=== PATIENT | male | born 1980 | race Hispanic/Latino ===

== ENCOUNTER 2024-03-28 11:42 | Inpatient (IN) | payer SELFPAY ==
[2024-03-28] VITALS (7 sets, daily range): BP systolic 138–146; BP diastolic 92–101; PULSE 66–74; RESP 17–20; TEMP 97.6–97.8; O2SAT 97–98
[~2024-03-28] VITALS: Ht 172.7 cm; Wt 89.4 kg
--- NOTE | 2024-03-28 11:52 | NUR ---
PATIENT WAS ADMINISTERED X1 SL NITRO AND 324MG OF ASA BRIM IRONER HAND BY EMS. PATIENT HAS NO COMPLAINTS OF CP AT THIS TIME.
--- NOTE | 2024-03-28 12:13 | ERN ---
ED Note History of Present Illness Stated Complaint: SOB Chief Complaint: Other Problems Time Seen by MD: 11:48 Time Seen by Midlevel: 11:48 Dictation: 43-year-old male with h/o DM presents to the ED via EMS for evaluation chest pain. Patient reports he has been doing cocaine and drinking since last night and has had chest pain. EMS reports gave nitro and 325 aspirin with improvement in symptoms.Patient no longer having pain at this time. Patient reports he has a chronic daily drinking that drinks every day with last drink last night. Reports was feeling anxious and shaking. Past Medical History Past Medical History: Diabetes-Type II, Hypertension Surgical History: Other Surgical History Other: RIGHT ARM SX Social History: Drugs, ETOH RN Note Reviewed/Agreed w/PFSH: Yes Review of System Dictation CONSTITUTIONAL: Negative except for HPI HEAD/FACE: Negative except for HPI EENT: Negative except for HPI RESPIRATORY: Negative except for HPI GASTROINTESTINAL/ABDOMINAL: Negative except for HPI GENITOURINARY: Negative except for HPI MUSCULOSKELETAL: Negative except for HPI INTEGUMENTARY: Negative except for HPI NEUROLOGICAL/PSYCH: Negative except for HPI HEMATOLOGIC/LYMPHATIC: Negative except for HPI All Systems Negative, Except as noted above. 13 point review of systems assessed and all negative except for above. Review of Systems: was completed Initial Vital Sign VS Vital Signs Date Time Temp Pulse Resp B/P (MAP) Pulse Ox O2 Delivery O2 Flow Rate FiO2 03/28/24 11:45 98.4 82 18 161/76 99 03/28/24 11:49 Room Air* 0 21 Physical Exam Dictation PHYSICAL EXAM: GENERAL: alert,, awake oriented x 3 HEENT: EOMI, Sclera non icteric, moist mucosa NECK: Supple, no JVD, trachea midline LUNGS: Clear breath sounds bilaterally. No wheezes HEART: Regular rate and rhythm. Normal S1 and S2, without murmurs ABD: Abdomen soft, nontender. Bowel sounds present EXT: No clubbing or cyanosis, NEURO: Alert and oriented to person, follows commands Results (Laboratory/Radiology) Laboratory/Radiology Laboratory Tests Test 03/28/24 11:50 03/28/24 12:34 03/28/24 14:13 White Blood Count 8.4 K/uL (4.8-10.8) Red Blood Count 4.72 MIL/uL (4.50-6.20) Hemoglobin 14.7 g/dL (14.0-18.0) Hematocrit 42.7 % (42-54) Mean Corpuscular Volume 90.5 fL (79-99) Mean Corpuscular Hemoglobin 31.1 pg (27.0-33.0) Mean Corpuscular Hemoglobin Concent 34.4 g/dL (32.0-36.0) Red Cell Distribution Width 13.6 % (11.0-15.5) Platelet Count 260 K/uL (130-400) Mean Platelet Volume 11.0 fL (7.5-10.5) H Immature Granulocyte % (Auto) 0.1 % (0-1) Neutrophils (%) (Auto) 72.4 % (40.0-77.0) Lymphocytes (%) (Auto) 16.5 % (21.0-51.0) L Monocytes (%) (Auto) 8.7 % (3.0-13.0) Eosinophils (%) (Auto) 1.6 % (0.0-8.0) Basophils (%) (Auto) 0.7 % (0.0-5.0) Neutrophils # (Auto) 6.1 K/uL (1.8-7.7) Lymphocytes # (Auto) 1.4 K/uL (1.0-4.8) Monocytes # (Auto) 0.7 K/uL (0.1-1.0) Eosinophils # (Auto) 0.13 K/uL (0.00-0.70) Basophils # (Auto) 0.06 K/uL (0.00-0.20) Absolute Immature Granulocyte (auto 0.01 K/uL (0-1) Nucleated Red Blood Cells 0.0 % (0.0-0.19) Sodium Level 134 mmol/L (136-145) L Potassium Level 3.8 mmol/L (3.5-5.1) Chloride Level 97 mmol/L (101-111) L Carbon Dioxide Level 26 mmol/L (21-32) Blood Urea Nitrogen 7 mg/dL (7-18) Creatinine 1.0 mg/dL (0.5-1.3) Glomerular Filtration Rate Calc 96 mL/min (>90) Random Glucose 104 mg/dL (70-105) Total Calcium 8.9 mg/dL (8.5-10.1) Total Creatine Kinase 530 U/L (21-232) *H B-Type Natriuretic Peptide 6 pg/mL (0-100) Serum Alcohol 5 mg/dL (0-10) Troponin I < 0.05 ng/mL (0.00-0.05) Troponin I High Sensitivity 6 ng/L (4-75) Labs Reviewed?: Yes ED Course ED Course Orders Procedure Category Date Status Time Vital Signs Per CPOE 03/28/24 Transmitted Routine 11:53 B-Type Natriuretic LAB 03/28/24 Complete Peptide 11:53 Chest 1vw RAD 03/28/24 Resulted 11:53 12 Lead Ekg Tracing- EKG 03/28/24 Logged Technical 11:53 Oxygen By Nc/Pulse Ox CPOE 03/28/24 Transmitted 11:53 Maintain Iv CPOE 03/28/24 Transmitted 11:53 Iv Insertion CPOE 03/28/24 Transmitted 11:53 Cardiac Monitoring CPOE 03/28/24 Transmitted 11:53 Pulse Oximetry With CPOE 03/28/24 Transmitted Vs And Prn 11:53 Cbc With Differential LAB 03/28/24 Complete 11:53 Activity: Br W/Brp CPOE 03/28/24 Transmitted With Assist 11:53 Creatine Kinase, Total LAB 03/28/24 Complete 11:53 Urinalysis Profile LAB 03/28/24 In Process 11:53 Troponin Poc Order LAB 03/28/24 Complete Only 11:53 Bedside Troponin-I LAB.ER 03/28/24 In Process (Poc) 11:53 Basic Metabolic Panel LAB 03/28/24 Complete 11:53 Alcohol, Blood LAB 03/28/24 Complete 12:01 0.9%Nacl 1000ml (Ns PHA 03/28/24 Complete 1000ml) 13:00 Drug Screen Urine LAB 03/28/24 Logged 13:39 Troponin I High LAB 03/28/24 Complete Sensitivity 14:06 Initiate YUSEF 03/28/24 In Process Hyperglycemia Protoco 15:21 Insulin Regular, PHA 03/28/24 Logged Human 3ml (Humulin R 16:30 Initiate Hypoglycemia YUSEF 03/28/24 Transmitted Protocol 15:21 Dextrose 50%-Water PHA 03/28/24 Transmitted (D50w) 15:30 Glucagon 1mg Kit PHA 03/28/24 Logged (Glucagon 1mg Kit) 15:30 Initiate Hypokalemia CPOE 03/28/24 Transmitted Po Half 15:21 Potassium Chloride PHA 03/28/24 Logged 10meq/100ml ([place] 15:30 Potassium Chl 10% PHA 03/28/24 Logged Elixir 20meq (Kcl 10% 15:30 Potassium Chloride PHA 03/28/24 Logged 20meq Er (K-Dur/Klor- 15:30 Notify Physician If CPOE 03/28/24 Transmitted There Is 15:21 Notify Md On The Next CPOE 03/28/24 Transmitted 15:21 Notify Md On The CPOE 03/28/24 Transmitted Next(Cont.) 15:21 Magnesium 2gm Premix PHA 03/28/24 Logged 50ml (Magnesium 2gm 15:30 B-Type Natriuretic LAB 03/29/24 Verified Peptide 04:00 Ammonia LAB 03/29/24 Verified 04:00 Cbc With Differential LAB 03/29/24 Verified 04:00 Comprehensive LAB 03/29/24 Verified Metabolic Panel 04:00 Covid19 (Sars Antigen LAB 03/28/24 Logged Rapid) 15:21 Creatine Kinase, Total LAB 03/29/24 Verified 04:00 D-Dimer LAB 03/28/24 In Process 15:21 Hemoglobin A1c LAB 03/29/24 Verified 04:00 Hepatic Function Panel LAB 03/29/24 Verified 04:00 Influenza Type A & B, LAB 03/28/24 Logged Rapid 15:21 Lactic Acid LAB 03/29/24 Verified 04:00 Magnesium LAB 03/29/24 Verified 02:00 Procalcitonin LAB 03/29/24 Verified 04:00 Vital Signs(Adult CPOE 03/28/24 Transmitted Hospitalist) 15:22 Vital Signs(Adult CPOE 03/28/24 Transmitted Hospitalist) 15:23 Daily Weights CPOE 03/28/24 Transmitted 15:23 I&O Q Shift CPOE 03/28/24 Transmitted 15:23 Fever: Blood Cx X 2 CPOE 03/28/24 Transmitted 15:23 Diphenhydramine Hcl PHA 03/28/24 Logged (Benadryl Inj) 15:30 Acetaminophen 325 Tab PHA 03/28/24 Logged (Tylenol 325mg Tab 15:30 Acetaminophen 325 Tab PHA 03/28/24 Logged (Tylenol 325mg Tab 15:30 Zolpidem Tartrate 5 PHA 03/28/24 Logged Mg Tab (Ambien) 15:30 Mag/Alum/Simeth 30ml PHA 03/28/24 Logged (Maalox Plus 30ml) 15:30 Lactulose 20 Gm/30 Ml PHA 03/28/24 Logged Udcup (Constulose 15:30 Nitroglycerin 0.4mg PHA 03/28/24 Logged Sl Tab (Nitrostat) 15:30 Guaifenesin-Dm PHA 03/28/24 Logged 200/20mg 10ml 15:30 Ipratropium 0.5 PHA 03/28/24 Logged Mg/2.5 Ml Inh 18:00 Famotidine 20mg Vial PHA 03/28/24 Logged (Pepcid 20mg Vial) 15:30 Albuterol 0.083% PHA 03/28/24 Logged 2.5mg/3ml (Proventil 15:30 Nurse To Enter Home CPOE 03/28/24 Transmitted Medication 15:23 Admit Orders ADM 03/28/24 Transmitted 15:23 Telemetry Monitoring CPOE 03/28/24 Transmitted 15:23 Activity: Ad Shaina CPOE 03/28/24 Transmitted 15:23 Consistent Carb DIET 03/28/24 Transmitted Dinner Heparin 5,000 Unit PHA 03/28/24 Logged Vial (Heparin 5,000 U 21:00 Apply Scds CPOE 03/28/24 Transmitted 15:23 Acetaminophen 325 Tab PHA 03/28/24 Logged (Tylenol 325mg Tab 15:30 Ketorolac PHA 03/28/24 Logged Tromethamine 15mg/Ml 15:30 Morphine 2mg Syg PHA 03/28/24 Logged (Morphine 2mg Syg) 15:30 Ct Chest W/O Contrast CT 03/28/24 Logged 15:23 Echo 2-D Complete ECHO 03/28/24 Logged 15:23 Us Carotid Duplex US 03/28/24 Logged 15:23 *Nursing CPOE 03/28/24 Transmitted Communication: 15:23 Case Management CM 03/28/24 Transmitted Evaluation 15:23 Pt Eval Request PT 03/28/24 Transmitted 15:23 Famotidine 20mg Tab PHA 03/28/24 Logged (Pepcid 20mg Tab) 21:00 0.9%Nacl 1000ml (Ns PHA 03/28/24 Logged 1000ml) 15:30 Hydralazine 20mg Inj PHA 03/28/24 Logged (Apresoline 20mg In 15:30 Etoh Alcohol YUSEF 03/28/24 In Process Withdrawal Ords 15:23 Chlordiazepoxide Hcl PHA 03/28/24 Logged 25 Mg Cap (Librium 15:30 Chlordiazepoxide Hcl PHA 03/28/24 Logged 25 Mg Cap (Librium 15:30 Ondansetron 4mg Inj PHA 03/28/24 Logged (Zofran 4mg Inj) 15:30 Promethazine Hcl PHA 03/28/24 Logged (Phenergan) 15:30 Acetaminophen 500mg PHA 03/28/24 Logged Tab (Tylenol 500mg T 15:30 Thiamine Hcl (Vitamin PHA 03/28/24 Logged B-1)... 15:30 Pharmacy PHA 03/28/24 Logged Communication 15:30 Use [facility] CPOE 03/28/24 Transmitted Assmt. Tool 15:23 Assess The Need For CPOE 03/28/24 Transmitted Seizure & 15:23 Vs Per Unit Routine & CPOE 03/28/24 Transmitted With 15:23 Document Etoh CPOE 03/28/24 Transmitted Withdrawal Score 15:23 Current Medications Medications (Trade) Dose Ordered Sig/Jyoti Route PRN Reason Start Time Stop Time Status Last Admin Dose Admin Acetaminophen (TYLenol 325MG TAB) 650 mg Q4H PRN PO MILD PAIN (1-3) 03/28/24 15:30 04/27/24 15:29 UNV Acetaminophen (TYLenol 325MG TAB) 650 mg Q6H PRN PO MILD PAIN (1-3) 03/28/24 15:30 04/27/24 15:29 UNV Acetaminophen (TYLenol 325MG TAB) 650 mg Q6H PRN PO TEMPERATURE GREATER THAN 101.5 03/28/24 15:30 04/27/24 15:29 UNV Acetaminophen (TYLenol 500MG TAB) 500 mg Q6H PRN PO TEMP < 101.1 AND/OR HEADACHE 03/28/24 15:30 04/27/24 15:29 UNV Al Hydroxide/Mg Hydroxide (MAALox PLUS 30ML) 30 ml Q6H PRN PO INDIGESTION 03/28/24 15:30 04/27/24 15:29 UNV Albuterol Sulfate (Proventil 0.083% 2.5mg/3ml) 2.5 mg [id number] PRN IH RESPIRATORY SYMPTOMS 03/28/24 15:30 04/27/24 15:29 UNV Chlordiazepoxide HCl (LIBrium 25 MG CAP) 25 mg Q2H PRN PO ALCOHOL WITHDRAWAL PROTOCOL 03/28/24 15:30 04/04/24 15:29 UNV Chlordiazepoxide HCl (LIBrium 25 MG CAP) 50 mg Q1H PRN PO ALCOHOL WITHDRAWAL PROTOCOL 03/28/24 15:30 04/04/24 15:29 UNV Dextrose (D50w) 50 ml AD PRN IV HYPOGLYCEMIA PROTOCOL 03/28/24 15:30 04/27/24 15:29 UNV Diphenhydramine HCl (BENAdryl INJ) 25 mg Q6H PRN IV SEVERE ITCHING/RASH 03/28/24 15:30 04/27/24 15:29 UNV Famotidine (Pepcid 20mg Vial) 20 mg BID PRN IV NAUSEA/VOMITING 03/28/24 15:30 04/27/24 15:29 UNV Famotidine (Pepcid 20mg Tab) 20 mg BID PO 03/28/24 21:00 04/27/24 20:59 UNV Glucagon (Glucagon 1mg Kit) 1 mg AD PRN IM HYPOGLYCEMIA PROTOCOL 03/28/24 15:30 04/27/24 15:29 UNV Guaifenesin/ Dextromethorphan (RobiTUSSin DM 200/20MG 10ML) 10 ml Q4H PRN PO COUGH 03/28/24 15:30 04/27/24 15:29 UNV Heparin Sodium (Porcine) (HEParin 5,000 UNIT VIAL) 5,000 unit BID SQ 03/28/24 21:00 04/27/24 20:59 UNV Hydralazine HCl (APRESOLine 20MG INJ) 10 mg Q6H PRN IV For:SBP above 160;DBP above 90 03/28/24 15:30 04/27/24 15:29 UNV Insulin Human Regular (humuLIN R 100 UNIT/ML 3ML) INSULIN SLIDING SCAL... ACHS SQ 03/28/24 16:30 04/27/24 16:29 UNV Ipratropium [place] (AtrovENT UD) 0.5 mg [id number] IH 03/28/24 18:00 04/27/24 17:59 UNV Ketorolac Tromethamine (toRADol) 15 mg Q8H PRN IV MODERATE PAIN (4-6) 03/28/24 15:30 04/02/24 15:29 UNV Lactulose (Constulose 20gm/ 30ml Udcup) 20 gm BID PRN PO CONSTIPATION 03/28/24 15:30 04/27/24 15:29 UNV Magnesium Sulfate 50 ml @ 0 mls/hr PROTOCOL PRN IV other 03/28/24 15:30 04/27/24 15:29 UNV Morphine Sulfate (morPHINE 2MG SYG) 1 mg Q4H PRN IVP SEVERE PAIN (7-10) 03/28/24 15:30 04/04/24 15:29 UNV Nitroglycerin (Nitrostat) 0.4 mg PROTOCOL PRN SL CHEST PAIN 03/28/24 15:30 04/27/24 15:29 UNV Ondansetron HCl (zoFRAN 4MG INJ) 4 mg Q4H PRN IV NAUSEA 03/28/24 15:30 04/27/24 15:29 UNV Pharmacy Profile Note (Pharmacy Communication) 1 each PROTOCOL PRN MISC ETOH Withdrawal Score changes 03/28/24 15:30 04/04/24 15:29 UNV Potassium Chloride 100 ml @ 100 mls/hr AD PRN IV POTASSIUM PROTOCOL 03/28/24 15:30 04/27/24 15:29 UNV Potassium Chloride (K-Dur/Klor-Con 20meq) 10 meq AD PRN PO POTASSIUM PROTOCOL 03/28/24 15:30 04/27/24 15:29 UNV Potassium Chloride (KCl 10% Elixir 20meq/15ml) 10 meq AD PRN PO POTASSIUM PROTOCOL 03/28/24 15:30 04/27/24 15:29 UNV Promethazine HCl (Phenergan) 25 mg Q6H PRN PO NAUSEA 03/28/24 15:30 04/27/24 15:29 UNV Sodium Chloride 1,000 ml @ 0 mls/hr ONCE ONCE IV 03/28/24 13:00 03/28/24 13:01 DC 03/28/24 14:43 Sodium Chloride 1,000 ml @ 100 mls/hr Q10H IV 03/28/24 15:30 04/27/24 15:29 UNV Thiamine HCl 100 mg/Folic Acid 1 mg/Multivitamins/ Minerals 10 ml/ Sodium Chloride 1,011.2 ml @ 100 mls/ hr Q24H IV 03/28/24 15:30 03/31/24 01:37 UNV Zolpidem Tartrate (AmbIEN) 5 mg HS PRN PO INSOMNIA 03/28/24 15:30 04/27/24 15:29 UNV Vital Signs Date Time Temp Pulse Resp B/P (MAP) Pulse Ox O2 Delivery O2 Flow Rate FiO2 03/28/24 15:06 98.4 105 20 152/90 96 Room Air* 0 21 03/28/24 13:58 98.2 101 20 158/74 98 Room Air* 0 21 03/28/24 11:49 98.4 108 18 161/89 95 Room Air* 0 21 03/28/24 11:45 98.4 82 18 161/76 99 HEART Score Response (Comments) Value History: Low suspicion (0) 0 EKG: Normal 0 Age: < 45yrs (0) 0 Risk Factors: 1-2 risk factors (+1) 1 Initial Troponin: Normal limit (0) 0 HEART Score Risk: Low Risk for MACE (1-3) Total 1 Medical Decision Making MDM MDM: Differential diagnosis: AMI, unstable angina, alcohol intoxication, alcohol withdrawal, drug abuse Rationale: Tests considered and ordered secondary to shared decision making include: Previous outside records reviewed: Old ER visits. Risk of complication and/or morbidity or mortality of patient management: None Medications-Per medication reconciliation Need for hospitalization: Patient does meet criteria for hospitalization. Need for emergency major/minor surgery: No There are no social concerns with this patient. Prescription drug management Prescriptions will include symptomatic care Patient's prior external medical records from other ER visits were reviewed by me as indicated. Prior testing and results from previous visits were reviewed. Prior tests were taken into account with medical decision making and resource utilization, independent historian/historians were used to obtain complete medical history. I independently interpreted the test that were performed, results were reviewed by me and considered findings on radiology if ordered. Medical management and examination interpretation discussions were had by me with other qualified healthcare professionals as indicated for the patient's care. 43-year-old male with h/o DM presents to the ED via EMS for evaluation chest pain. Patient reports he has been doing cocaine and drinking since last night and has had chest pain. EMS reports gave nitro and 325 aspirin with improvement in symptoms.Patient no longer having pain at this time. Patient reports he has a chronic daily drinking that drinks every day with last drink last night. Reports was feeling anxious and shaking. On physical examination patient does appear to be anxious, or any alcohol withdrawals. No seizures, hallucinations. Patient was stable, no pain. Discussed with the plan with the hospitalist who agrees for admission. 2 negative troponin. Elevated CK, 530. Patient was given a bolus of NS. BNP within normal limits. Serum alcohol five. Ordered UTI has been unable to give urine sample at this time. She was x-ray shows fin dings consistent with a pulmonary venous congestion. Patient was in stable condition at this time to be a admitted. Heart score of one. DX & DISP Disposition: Inpatient Decision to Admit Date: Mar 28, 2024 Decision to Admit Time: 15:06 Departure Impression: Primary Impression: Alcohol withdrawal Additional Impressions: Drug use, Pulmonary venous congestion, Elevated CK Condition: Stable I have reviewed the case, and I agree with, Diagnosis and Plan CATHERINE CHAO Mar 28, 2024 12:13
[2024-03-28 12:19] LABS: BASOPHILS # (AUTO) 0.06 K/uL (0.00-0.20); BASOPHILS % (AUTO) 0.7 % (0.0-5.0); EOSINOPHILS # (AUTO) 0.13 K/uL (0.00-0.70); EOSINOPHILS % (AUTO) 1.6 % (0.0-8.0); HEMATOCRIT 42.7 % (42-54); IMMATURE GRANULOCYTE ABSOLUTE 0.01 K/uL (0-1); LYMPHOCYTES # (AUTO) 1.4 K/uL (1.0-4.8); LYMPHOCYTES % (AUTO) 16.5 % (21.0-51.0); MEAN CORPUSCULAR HEMOGLOBIN 31.1 pg (27.0-33.0); MEAN CORPUSCULAR HGB CONC 34.4 g/dL (32.0-36.0); MEAN CORPUSCULAR VOLUME 90.5 fL (79-99); MONOCYTES # (AUTO) 0.7 K/uL (0.1-1.0); MONOCYTES % (AUTO) 8.7 % (3.0-13.0); NEUTROPHILS # (AUTO) 6.1 K/uL (1.8-7.7); NEUTROPHILS % (AUTO) 72.4 % (40.0-77.0); PLATELET COUNT (AUTO) 260 K/uL (130-400); RED BLOOD CELL COUNT(AUTO) 4.72 MIL/uL (4.50-6.20); RED CELL DISTRIBUTION WIDTH 13.6 % (11.0-15.5); WHITE BLOOD COUNT (AUTO) 8.4 K/uL (4.8-10.8)
[2024-03-28 12:34] LABS: POTASSIUM 3.8 mmol/L (3.5-5.1)
[2024-03-28 12:35] LABS: B-TYPE NATRIURETIC PEPTIDE 6 pg/mL (0-100)
--- NOTE | 2024-03-28 12:56 | NUR ---
[id number] ERMD MADE AWARE
--- NOTE | 2024-03-28 13:24 | HMCIMG ---
Exam Type: CHEST 1VW Clinical Information: CHEST PAIN Comparison: None Findings: There is cardiomegaly. There is prominence of the vascular markings consistent with pulmonary venous congestion. IMPRESSION: Findings consistent with pulmonary venous congestion.
[2024-03-28] MEDS: 0.9%NACL 1000ML 1,000 ML IV ONE (14:43)
[2024-03-28] MEDS ORDERED: GLUCAGON 1MG KIT 1 MG ML IM PRN (15:30)
[2024-03-28] MEDS ORDERED: LACTULOSE 20 GM/30 ML UDCUP PO PRN (15:30)
[2024-03-28] MEDS ORDERED: PoTASSium chloRIDE 10MEQ/100ML 100 ML IV PRN (15:30)
[2024-03-28] MEDS ORDERED: morPHINE 2 MG SYG IVP PRN (15:30)
[2024-03-28] MEDS ORDERED: acetaMINOPHEN 325 MG TAB PO PRN ×2 (15:30)
[2024-03-28] MEDS ORDERED: MAG/ALUM/SIMETH 30 ML UDCUP PO PRN (15:30)
[2024-03-28] MEDS ORDERED: ondanSETRON 4MG INJ IV PRN (15:30)
[2024-03-28] MEDS ORDERED: DEXTROSE 50%-WATER 50 ML DISP.SYRIN IV PRN (15:30)
[2024-03-28] MEDS ORDERED: ZOLPidem TARTrate 5 MG TAB PO PRN (15:30)
[2024-03-28] MEDS ORDERED: PHARMACY COMMUNICATION MISC PRN (15:30)
[2024-03-28] MEDS ORDERED: DiphenhydrAMINE HCL 50 MG/ML VIAL IV PRN (15:30)
[2024-03-28] MEDS ORDERED: acetaMINOPHEN 500 MG TABLET PO PRN (15:30)
[2024-03-28] MEDS ORDERED: PROMETHAZINE HCL 25 MG TABLET PO PRN (15:30)
[2024-03-28] MEDS ORDERED: PoTASSium chloRIDE 10MEQ SR 10 MEQ/TAB TAB.SR.24H PO PRN (15:30)
[2024-03-28] MEDS ORDERED: NITROGLYCERIN 0.4 MG SL TAB SL PRN (15:30)
[2024-03-28] MEDS ORDERED: PoTASSium chl 10% ELIXIR 20MEQ 20 MEQ/15 ML UDCUP PO PRN (15:30)
[2024-03-28] MEDS ORDERED: FAMOTIDINE 20MG VIAL IV PRN (15:30)
[2024-03-28] MEDS ORDERED: hydrALAZine 20MG/ML VIAL IV PRN (15:30)
[2024-03-28] MEDS ORDERED: ALBUTEROL 0.083% 2.5 MG/3 ML INH IH PRN (15:30)
[2024-03-28] MEDS ORDERED: guaiFENesin-DM 200/20MG 10ML PO PRN (15:30)
--- NOTE | 2024-03-28 15:31 | HP ---
[facility] PH[facility] Date of Service: Mar 28, 2024 Time of Service: 15:29 PCP:self reffering Admitting: Dr Solomon, Allergies: No Allergy Information Available, No Known Drug Allergies HISTORY OF PRESENT ILLNESS: [Pt is 43-year-old male with medical hx of DM, htn, alcohol and drug abuse who presents to the ED via EMS for evaluation chest pain. Patient reports he has been doing cocaine and drinking since last night and has had chest pain. EMS reports gave nitro and 325 aspirin with improvement in symptoms.Patient no longer having pain at this time. Most recent VS R 105, HR 152/90, pt on RA satting 96%. WbC 8.4 h and h WNL, plattletts 260 Na 134, K3.8 co2 26, cr 1 bun 7 GFR 96 CK 530 troponin negative. CXRAY pulmonary venous congestion We will consult cardiology for furter eval. Pt agrees with plan] REVIEW OF SYSTEMS CONSTITUTIONAL: Denies fevers, chills, or night sweats. No unintentional weight loss reported. NEUROLOGICAL: Denies headache, amaurosis fugax, motor weakness, sensory deficit, vertigo/spinning sensation, gait abnormalities, or tremors. ENT: No hearing loss, otalgia, otorrhea, rhinitis, rhinorrhea, hoarseness, or sore throat. CARDIOVASCULAR: Denies any , orthopnea, paroxysmal nocturnal dyspnea, palpitations, life-threatening arrhythmias, claudication.Pt complaines of SOB, CP PULMONARY: Denies any shortness of breath, cough, phlegm/sputum, hemoptysis, pleuritic chest pain. SLEEP: Denies morning headaches, daytime somnolence or napping. Denies difficulty falling asleep, staying asleep, waking from sleep. Denies knowledge of snoring. GASTROINTESTINAL: Denies any type of dysphagia to either liquids or solids. Denies nausea, vomiting, pyrosis, early satiety, abdominal pain, diarrhea, constipation, or changes in stool consistency or caliber. Denies coffee-ground emesis, hematemesis, hematochezia, or melanotic stools. GENITOURINARY: Denies frequency, urgency, nocturia, hematuria or incontinence (Storage/Irritative symptoms.) Low urinary stream, straining to void, urinary intermittency or hesitancy, splitting of the voiding stream, terminal dribbling. ENDOCRINOLOGIC: Denies polyuria, polydipsia, polyphagia or heat/cold intolerances. HEMATOLOGIC: Denies thrombophilia/previous clots, or coagulopathy/bleeding disorders. ONCOLOGIC: Denies personal history of malignancy. DERMATOLOGIC: Denies rashes or pruritus. PSYCHIATRIC: Denies any suicidal or homicidal ideation. Denies hallucinations. PAST MEDICAL HISTORY: [ htn, dm2, tachy, alcohol and cocain abuse,] PAST SURGICAL HISTORY: [ right arm sx] PAST SOCIAL HISTORY: [ cocain and alcohol abuse daily. ] FAMILY HISTORY: [ lives at home with family ] PHYSICAL EXAM GENERAL APPEARANCE: The patient is awake, alert, and oriented, in no acute cardiopulmonary distress. NEUROLOGICAL: Cranial nerves II-XII grossly intact. Motor is 5/5 in bilateral upper and lower extremities proximal to distal. No sensory deficits. HEENT: Face is symmetric. Pupils are equal and reactive. Extraocular movements are intact. NECK: Supple. No JVD. No thyromegaly. No submental, submandibular, pre- /postauricular, occipital or supraclavicular lymphadenopathy. CHEST: Normal chest expansion. No Telemetry. LUNGS: Absence of any rales, rhonchi or any wheezing. CARDIOVASCULAR: Regular. S1 and S2 normal. No appreciable rubs, murmurs or gallops. ABDOMEN: Soft, nontender, and nondistended. There is no rebound, voluntary guarding, or rigidity. : Deferred. No Ron. EXTREMITIES: Non-edematous and not cyanotic. No clubbing. Good capillary refill. SKIN: No skin breakdown. Vital Sign (Last 24 Hours) 03/28/24 15:06 Temp 98.4 Pulse 105 Resp 20 B/P (MAP) 152/90 Pulse Ox 96 O2 Delivery Room Air* O2 Flow Rate 0 FiO2 21 LABS: Laboratory: Test 03/28/24 14:13 03/28/24 12:34 03/28/24 11:50 Range/Units Troponin I High Sensitivity 6 4-75 ng/L Troponin I < 0.05 0.00-0.05 ng/mL White Blood Count 8.4 4.8-10.8 K/uL Red Blood Count 4.72 4.50-6.20 MIL/uL Hemoglobin 14.7 14.0-18.0 g/dL Hematocrit 42.7 42-54 % Mean Corpuscular Volume 90.5 79-99 fL Mean Corpuscular Hemoglobin 31.1 27.0-33.0 pg Mean Corpuscular Hemoglobin Concent 34.4 32.0-36.0 g/dL Red Cell Distribution Width 13.6 11.0-15.5 % Platelet Count 260 130-400 K/uL Mean Platelet Volume 11.0 H 7.5-10.5 fL Immature Granulocyte % (Auto) 0.1 0-1 % Neutrophils (%) (Auto) 72.4 40.0-77.0 % Lymphocytes (%) (Auto) 16.5 L 21.0-51.0 % Monocytes (%) (Auto) 8.7 3.0-13.0 % Eosinophils (%) (Auto) 1.6 0.0-8.0 % Basophils (%) (Auto) 0.7 0.0-5.0 % Neutrophils # (Auto) 6.1 1.8-7.7 K/uL Lymphocytes # (Auto) 1.4 1.0-4.8 K/uL Monocytes # (Auto) 0.7 0.1-1.0 K/uL Eosinophils # (Auto) 0.13 0.00-0.70 K/uL Basophils # (Auto) 0.06 0.00-0.20 K/uL Absolute Immature Granulocyte (auto 0.01 0-1 K/uL Nucleated Red Blood Cells 0.0 0.0-0.19 % Sodium Level 134 L 136-145 mmol/L Potassium Level 3.8 3.5-5.1 mmol/L Chloride Level 97 L 101-111 mmol/L Carbon Dioxide Level 26 21-32 mmol/L Blood Urea Nitrogen 7 7-18 mg/dL Creatinine 1.0 0.5-1.3 mg/dL Glomerular Filtration Rate Calc 96 >90 mL/min Random Glucose 104 70-105 mg/dL Total Calcium 8.9 8.5-10.1 mg/dL Total Creatine Kinase 530 *H 21-232 U/L B-Type Natriuretic Peptide 6 0-100 pg/mL Serum Alcohol 5 0-10 mg/dL Current Medications Medications (Trade) Dose Ordered Sig/Jyoti Route PRN Reason Start Time Stop Time Status Last Admin Dose Admin Dextrose (D50w) 50 ml AD PRN IV HYPOGLYCEMIA PROTOCOL 03/28/24 15:30 04/27/24 15:29 UNV Glucagon (Glucagon 1mg Kit) 1 mg AD PRN IM HYPOGLYCEMIA PROTOCOL 03/28/24 15:30 04/27/24 15:29 UNV Insulin Human Regular (humuLIN R 100 UNIT/ML 3ML) INSULIN SLIDING SCAL... ACHS SQ 03/28/24 16:30 04/27/24 16:29 UNV Magnesium Sulfate 50 ml @ 0 mls/hr PROTOCOL PRN IV other 03/28/24 15:30 04/27/24 15:29 UNV Potassium Chloride 100 ml @ 100 mls/hr AD PRN IV POTASSIUM PROTOCOL 03/28/24 15:30 04/27/24 15:29 UNV Potassium Chloride (K-Dur/Klor-Con 20meq) 10 meq AD PRN PO POTASSIUM PROTOCOL 03/28/24 15:30 04/27/24 15:29 UNV Potassium Chloride (KCl 10% Elixir 20meq/15ml) 10 meq AD PRN PO POTASSIUM PROTOCOL 03/28/24 15:30 04/27/24 15:29 UNV DIAGNOSTICS / RADIOLOGY: [ ] ASSESSMENT: [ Acute hypoxic respiratory failure POA chest pain of unknown origin POA acute alcohol withdrawal POA acute cocain drug withdrawal POA rhabdomylosis POA [place] dehydration POA pulmonary vasc congestion per chest xray POA uncontrolled hypertension POA tachycardia POA uncontrolled dm 2 with hyperglycemia POA hx r arm sx ] PLAN: [ Admit to:med sx with tele Consults:cardiology Antibiotics: none Tests:2d echo, ct chest, us carotid NEURO: Minimize central acting medications as possible. Fall Precautions. Well lighted room through the day and minimize interruptions through the night to prevent acute delirium. PULMONARY: CXRAY pulmonary venous congestion Supplemental 02 as needed BiPAP as necessary, for respiratory distress Titrate Fio2 to keep Spo2 > or = 90% DuoNebs and CPT as needed IS hourly while awake for pulmonary hygiene Out of bed to chair as tolerated VAP Bundle Maintain aspiration precautions at all times CARDIOVASCULAR: Follow hemodynamics. Vital signs per facility protocol GI & NUTRITION: Continue nutritional support Aspirations precautions Prokinetic agents and laxatives as needed KIDNEYS & ELECTROLYTES: Strict monitoring of intake and output Daily weights Avoid nephrotoxic agents Monitor electrolytes and replace as needed Goal urine output of 30mL/hr or 0.5mL/kg/hr Medications to be dosed according to renal function. Avoid contrast if possible ENDOCRINE: Maintain blood glucose between 100-180 at all times. Insulin sliding scale for blood glucose management Hypoglycemia and hyperglycemia protocol in place INFECTIOUS DISEASE: Trend temperature, WBC and procalcitonin level Follow cultures, deescalate antibiotics as soon as possible. Panculture if new onset fever HEMATOLOGY & COAGULATION: Monitor H&H. Keep Hgb > 7 Transfuse 1 unit of PRBC for Hgb < 7 Transfuse 1 pack of platelets of platelets < 20, 000 Watch for any signs and symptoms of bleeding SKIN: Pressure ulcer prevention per facility protocol Specialty mattress as needed Treatment plan discussed with patient and family at the bedside Medications to be reconciled once obtained by patient and/or family and available to be reconciled in computer p.r.n. medication for pain nausea and vomiting Questions were answered We will continue to monitor the patient closely Cancer Registry Manager for disposition Rehab: PT/OT GI: PPI DVT: SCD's Code Status: Full Resuscitation Disposition: TBD Prognosis: Guarded ] ADVANCED CARE PLANNING 1. Which of the following were discussed? Hospice Care - Yes / No Therapeutic options - Yes / No Advance Directives - Yes / No Other discussions - 2. Discussed with who? pt 3. Voluntary nature of this service was explained to the patient? Yes / No 4. Amount of time spent - __more than 35 min 5. Reviewed by Physician? (if this service was performed by NPP) Yes / No ' ATTESTATION BY PHYSICIAN I have seen and examined the patient. I reviewed the documentation, medical decision making, and treatment plan as noted by the mid-level provider above. I agree with the findings and plan of care. Jacque Solomon MD, KATARZYNA B TARIFF CLERK Mar 28, 2024 15:31
--- NOTE | 2024-03-28 15:45 | NUR ---
CT EXAM DELAY: ULTRASOUND WITH PATIENT.
[2024-03-28 15:53] LABS: APPEARANCE,URINE CLEAR (CLEAR); BILIRUBIN,URINE NEGATIVE (NEGATIVE); COLOR,URINE COLORLESS (YELLOW); GLUCOSE, URINE (UA) NEGATIVE (NEGATIVE); KETONES,URINE 5 mg/dL (NEGATIVE); LEUKOCYTE ESTERASE ,URINE NEGATIVE Leu/uL (NEGATIVE); NITRATE,URINE NEGATIVE (NEGATIVE); OCCULT BLOOD,URINE NEGATIVE (NEGATIVE); PROTEIN,URINE NEGATIVE (NEGATIVE); UROBILINOGEN,URINE 0.2 mg/dL (0.2-1.0)
[2024-03-28 15:59] LABS: ADD UA MICROSCOPIC NO
[2024-03-28] MEDS: INSULIN humuLIN R 100 UNIT/ML 3ML SQ SCH (16:08)
[2024-03-28] MEDS: 0.9%NACL 1000ML 1,000 ML IV SCH (16:26)
[2024-03-28] MEDS: chlordiazePOXIDE HCL 25 MG CAP PO PRN ×2 (16:29→20:27)
[2024-03-28] MEDS: THIAMINE HCL 100 MG, FOLic ACID 5 MG/ML VIAL 1 MG, M.V.I. IV [ADULT] 10 ML in 0.9%NACL ... IV SCH (16:29)
--- NOTE | 2024-03-28 16:38 | HMCIMG ---
Carotid Duplex and color-flow Doppler bilateral Clinical Information: syncopy Comparison: None Findings: Mild left bifurcation plaque is seen. No hemodynamically significant stenosis noted. Left Internal Carotid Artery Peak Systolic Velocity (PSV), Left Internal Carotid to Common Carotid Artery peak systolic velocity ratio, Right Internal Carotid Artery Peak Systolic Velocity (PSV) and Right Internal Carotid to Common Carotid Artery peak systolic velocity ratio, are all within normal limits. External carotid artery velocities normal bilaterally. Bilateral vertebral arteries show normal velocities and waveforms with antegrade flow. Impression: No hemodynamically significant stenosis noted. NASCET CRITERIA. The degree of internal carotid artery stenosis is based on NASCET criteria. Normal is no stenosis. Mild is less than 50% stenosis. Moderate is 50-69% stenosis. Severe is 70% to 99% stenosis. Total occlusion is no detectable patent lumen.
--- NOTE | 2024-03-28 17:26 | EKG ---
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
[2024-03-28 17:56] LABS: AMPHET/METH SCREEN,URINE NEGATIVE (NEGATIVE); BARBITURATE SCREEN, URINE NEGATIVE (NEGATIVE); BENZODIAZEPINES SCREEN,URINE NEGATIVE (NEGATIVE); CANNABINOID SCREEN,URINE NEGATIVE (NEGATIVE); COCAINE SCREEN,URINE POSITIVE (NEGATIVE); OPIATE SCREEN,URINE NEGATIVE (NEGATIVE); PHENCYCLIDINE SCREEN,URINE NEGATIVE (NEGATIVE)
[2024-03-28] MEDS: IpraTROPium 0.5 MG/2.5 ML INH IH SCH (18:09)
--- NOTE | 2024-03-28 19:09 | NUR ---
TOOK OVER PATIENT AT THIS TIME
--- NOTE | 2024-03-28 20:15 | HMCIMG ---
CT CHEST W/O CONTRAST CLINICAL HISTORY: pna congestion sob COMPARISON: None TECHNIQUE: Multiple sequential axial images of the chest were obtained from the thoracic inlet through upper abdomen. CT was performed with one or more of the following dose reduction techniques: automated exposure control, adjustment of the mA and/or kV according to patient size, or use of iterative reconstruction technique FINDINGS: There is mild bibasilar atelectasis. The mediastinum is free of pathologic sized lymph nodes. There is no calcified coronary artery disease. Note is made of a large fatty liver. The bony structures are within normal limits. IMPRESSION: There are no identified infiltrates or acute findings. Fatty liver
[2024-03-28 20:27] LABS: COVID19 (SARS ANTIGEN RAPID) PRESUMPTIVE NEGATIVE (NEGATIVE); INFLUENZA TYPE A Negative For Type A (NEGATIVE); INFLUENZA TYPE B Negative For Type B (NEGATIVE)
[2024-03-28] MEDS: FAMOTIDINE 20MG TAB PO SCH (20:27)
[2024-03-28] MEDS: HEParin 5,000 UNIT VIAL SQ SCH (20:27)
[2024-03-29] VITALS (12 sets, daily range): BP systolic 131–157; BP diastolic 86–99; PULSE 65–83; RESP 17–19; TEMP 97.2–98.3; O2SAT 94–98
--- NOTE | 2024-03-29 02:35 | CONS ---
CHIEF COMPLAINT: Reproducible chest pain in the setting of cocaine intoxication and alcohol withdrawal. OUTPATIENT INDIAN TRADER: None. PRIMARY CARE PHYSICIAN: None. SOURCE: 1. The patient who is generally reliable. 2. The medical record. HISTORY OF PRESENT ILLNESS: The patient is a 43-year-old alcoholic and cocaine abuser, who had been bingeing on both last night. He thinks he might have fallen and struck his chest. He was reporting sternal discomfort to palpation and deep breathing. Apparently, EMS gave him nitroglycerin and aspirin 325 with improvement in his symptoms. He has received Librium and is somewhat groggy, but he denies any chest pain. He denies similar chest pain now. He does feel some shortness of breath/difficulty breathing. Denies palpitations. He drinks a bottle of vodka every night, in addition to cocaine. On arrival, he was mildly tachycardic at 105. EKG did not show any ischemic changes. Troponin has been normal times 2, CK 530. CBC and other chemistries unremarkable. Also reportedly syncopized in the setting of alcohol intoxication, so carotid Dopplers were ordered which were normal. Chest x-ray suggests some vascular congestion. He is currently on CIPR protocol. The patient does not have a family physician. He reports a cardiac arrest 5 or 6 years ago at [facility] and required thoracotomy and cardiac massage. Again, he has never followed up with anyone after this and does not take any medications. He does not smoke. No family history of heart disease. REVIEW OF SYSTEMS: No reports of fever or bleeding. No diabetes. ALLERGIES: No known drug allergies. HOME MEDICATIONS: None. PAST MEDICAL HISTORY: * Alcoholism. * Chronic cocaine use. * History of cardiac arrest at [facility] with thoracotomy and cardiac massage. PAST SURGICAL HISTORY: Left-sided thoracotomy. FAMILY HISTORY: Negative for heart disease. SOCIAL HISTORY: Alcohol and cocaine abuser. He does not smoke. PHYSICAL EXAMINATION: GENERAL: Obese disheveled, middle-aged male. VITAL SIGNS: Temperature 97.5, pulse 73, respirations 17, blood pressure most recently 138/92. HEENT: Atraumatic. No nasal discharge or icterus. Hearing intact. NECK: Symmetric. Midline trachea. No bruits. CARDIOVASCULAR: Rhythm and rate regular. No edema. Chest wall is slightly tender. There is some pleuritic discomfort. GASTROINTESTINAL: Benign, soft, nontender. EXTREMITIES: No amputations or deformities. Range of motion normal. NEUROLOGIC: No asterixis this time. Speech generally clear. PSYCHIATRY: The patient is answering questions and following commands, though is groggy. LABORATORY DATA: Positive UDS, positive for cocaine. Cardiac troponin is negative x 2. CK 530. CBC unremarkable. Carotid arteries normal. RADIOLOGY: Chest x-ray suggests some vascular congestion. BNP was 6. EKG; sinus, no ischemia. ASSESSMENT: * Reproducible noncardiac chest pain. * Cocaine abuse. * Alcohol intoxication & withdrawal. * Reported history of cardiac arrest, requiring thoracotomy and cardiac massage at [facility]. * Noncompliance with medical followup. PLAN: The patient has no evidence of myocardial ischemia. Troponins were normal. BNP was normal, so he is not volume overloaded. He clearly describes reproducible chest pain and thinks he may have fallen. Elevated CK is consistent with some rhabdo. No further cardiac workup. An echo has been ordered, but this will not change his management. 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 Not a for GDMT candidate for beta dex, antiplatelet agents or statins. Not a candidate for any type of cardiac workup in the setting of alcohol withdrawal. Prognosis is poor. Cardiology signing off but can see him in the office. TID: [id number] RECEIPT: [id number] [facility]
[2024-03-29 05:16] LABS: BASOPHILS # (AUTO) 0.02 K/uL (0.00-0.20); BASOPHILS % (AUTO) 0.4 % (0.0-5.0); EOSINOPHILS # (AUTO) 0.27 K/uL (0.00-0.70); EOSINOPHILS % (AUTO) 5.6 % (0.0-8.0); HEMATOCRIT 41.6 % (42-54); IMMATURE GRANULOCYTE ABSOLUTE 0.01 K/uL (0-1); LYMPHOCYTES # (AUTO) 1.5 K/uL (1.0-4.8); LYMPHOCYTES % (AUTO) 31.2 % (21.0-51.0); MEAN CORPUSCULAR HEMOGLOBIN 31.5 pg (27.0-33.0); MEAN CORPUSCULAR HGB CONC 33.4 g/dL (32.0-36.0); MEAN CORPUSCULAR VOLUME 94.3 fL (79-99); MONOCYTES # (AUTO) 0.4 K/uL (0.1-1.0); MONOCYTES % (AUTO) 8.9 % (3.0-13.0); NEUTROPHILS # (AUTO) 2.6 K/uL (1.8-7.7); NEUTROPHILS % (AUTO) 53.7 % (40.0-77.0); PLATELET COUNT (AUTO) 196 K/uL (130-400); RED BLOOD CELL COUNT(AUTO) 4.41 MIL/uL (4.50-6.20); WHITE BLOOD COUNT (AUTO) 4.8 K/uL (4.8-10.8)
[2024-03-29 05:20] LABS: HEMOGLOBIN A1C 6.3 % (4.0-6.0)
[2024-03-29 05:28] LABS: ALBUMIN 2.9 g/dL (3.5-5.0); BILIRUBIN,DIRECT 0.2 mg/dL (0.0-0.3); BILIRUBIN,TOTAL 0.9 mg/dL (0.2-1.0); MAGNESIUM 1.7 mg/dL (1.80-2.40); POTASSIUM 3.9 mmol/L (3.5-5.1); TOTAL PROTEIN, SERUM 6.7 g/dL (6.0-8.3)
--- NOTE | 2024-03-29 13:45 | PN ---
[facility] PROGRESS NOTE Date of Service: Mar 29, 2024 Time of Service: 13:39 SUBJECTIVE: [ ] Pt is 43-year-old male with medical hx of DM, htn, alcohol and drug abuse who presents to the ED via EMS for evaluation chest pain. Patient reports he has been doing cocaine and drinking since last night and has had chest pain. EMS reports gave nitro and 325 aspirin with improvement in symptoms.Patient no longer having pain at this time. 03/29/2024 no episodes of shortness a breath or chest pain. Nurse reports pat ient having DTs overnight Librium was given. We will continue with CIWA protocol. REVIEW OF SYSTEMS CONSTITUTIONAL: Denies fevers, chills, or night sweats. No unintentional weight loss reported. NEUROLOGICAL: Denies headache, amaurosis fugax, motor weakness, sensory deficit, vertigo/spinning sensation, gait abnormalities, or tremors. ENT: No hearing loss, otalgia, otorrhea, rhinitis, rhinorrhea, hoarseness, or so re throat. CARDIOVASCULAR: Denies any , orthopnea, paroxysmal nocturnal dyspnea, palpitations, life-threatening arrhythmias, claudication.Pt complaines of SOB, CP PULMONARY: Denies any shortness of breath, cough, phlegm/sputum, hemoptysis, pleuritic chest pain. SLEEP: Denies morning headaches, daytime somnolence or napping. Denies difficulty falling asleep, staying asleep, waking from sleep. Denies knowledge of snoring. GASTROINTESTINAL: Denies any type of dysphagia to either liquids or solids. Denies nausea, vomiting, pyrosis, early satiety, abdominal pain, diarrhea, constipation, or changes in stool consistency or caliber. Denies coffee-ground emesis, hematemesis, hematochezia, or melanotic stools. GENITOURINARY: Denies frequency, urgency, nocturia, hematuria or incontinence (Storage/Irritative symptoms.) Low urinary stream, straining to void, urinary intermittency or hesitancy, splitting of the voiding stream, terminal dribbling. ENDOCRINOLOGIC: Denies polyuria, polydipsia, polyphagia or heat/cold intolerances. HEMATOLOGIC: Denies thrombophilia/previous clots, or coagulopathy/bleeding disorders. ONCOLOGIC: Denies personal history of malignancy. DERMATOLOGIC: Denies rashes or pruritus. PSYCHIATRIC: Denies any suicidal or homicidal ideation. Denies hallucinations. PHYSICAL EXAM GENERAL APPEARANCE: The patient is awake, alert, and oriented, in no acute cardiopulmonary distress. NEUROLOGICAL: Cranial nerves II-XII grossly intact. Motor is 5/5 in bilateral upper and lower extremities proximal to distal. No sensory deficits. HEENT: Face is symmetric. Pupils are equal and reactive. Extraocular movements are intact. NECK: Supple. No JVD. No thyromegaly. No submental, submandibular, pre- /postauricular, occipital or supraclavicular lymphadenopathy. CHEST: Normal chest expansion. No Telemetry. LUNGS: Absence of any rales, rhonchi or any wheezing. CARDIOVASCULAR: Regular. S1 and S2 normal. No appreciable rubs, murmurs or gallops. ABDOMEN: Soft, nontender, and nondistended. There is no rebound, voluntary guarding, or rigidity. : Deferred. No Ron. EXTREMITIES: Non-edematous and not cyanotic. No clubbing. Good capillary refill. SKIN: No skin breakdown. Vital Signs (last 8hr) Date Time Temp Pulse Resp B/P (MAP) Pulse Ox O2 Delivery O2 Flow Rate FiO2 03/29/24 12:00 97.7 77 18 131/87 94 Room Air 03/29/24 11:34 79 17 N/A Room Air 21 03/29/24 11:34 79 18 03/29/24 08:00 97.7 70 18 133/86 100 Room Air 03/29/24 08:00 94 Room Air* 0 21 03/29/24 07:01 65 18 03/29/24 07:01 65 17 N/A Room Air 21 LABS: Laboratory: Test 03/29/24 10:53 03/29/24 05:00 03/28/24 20:01 03/28/24 15:34 Range/Units Whole Blood Glucose 133 H 70-110 MG/DL White Blood Count 4.8 # 4.8-10.8 K/uL Red Blood Count 4.41 L 4.50-6.20 MIL/uL Hemoglobin 13.9 L 14.0-18.0 g/dL Hematocrit 41.6 L 42-54 % Mean Corpuscular Volume 94.3 79-99 fL Mean Corpuscular Hemoglobin 31.5 27.0-33.0 pg Mean Corpuscular Hemoglobin Concent 33.4 32.0-36.0 g/dL Red Cell Distribution Width 14.0 11.0-15.5 % Platelet Count 196 130-400 K/uL Mean Platelet Volume 10.6 H 7.5-10.5 fL Immature Granulocyte % (Auto) 0.2 0-1 % Neutrophils (%) (Auto) 53.7 40.0-77.0 % Lymphocytes (%) (Auto) 31.2 21.0-51.0 % Monocytes (%) (Auto) 8.9 3.0-13.0 % Eosinophils (%) (Auto) 5.6 0.0-8.0 % Basophils (%) (Auto) 0.4 0.0-5.0 % Neutrophils # (Auto) 2.6 1.8-7.7 K/uL Lymphocytes # (Auto) 1.5 1.0-4.8 K/uL Monocytes # (Auto) 0.4 0.1-1.0 K/uL Eosinophils # (Auto) 0.27 0.00-0.70 K/uL Basophils # (Auto) 0.02 0.00-0.20 K/uL Absolute Immature Granulocyte (auto 0.01 0-1 K/uL Nucleated Red Blood Cells 0.0 0.0-0.19 % Sodium Level 138 136-145 mmol/L Potassium Level 3.9 3.5-5.1 mmol/L Chloride Level 104 101-111 mmol/L Carbon Dioxide Level 27 21-32 mmol/L Blood Urea Nitrogen 9 7-18 mg/dL Creatinine 1.0 0.5-1.3 mg/dL Glomerular Filtration Rate Calc 96 >90 mL/min Random Glucose 113 H 70-105 mg/dL Hemoglobin A1c 6.3 H 4.0-6.0 % Estimated Average Glucose (eAG) 134 H 70-126 mg/dL Lactic Acid Level 1.0 0.8-2.5 mmol/L Total Calcium 8.2 L 8.5-10.1 mg/dL Magnesium Level 1.70 L 1.80-2.40 mg/dL Total Bilirubin 0.9 0.2-1.0 mg/dL Direct Bilirubin 0.2 0.0-0.3 mg/dL Aspartate Amino Transf (AST/SGOT) 55 H 10-37 U/L Alanine Aminotransferase (ALT/SGPT) 53 12-78 U/L Alkaline Phosphatase 72 50-136 U/L Ammonia 22 11-32 umol/L Total Creatine Kinase 202 # 21-232 U/L B-Type Natriuretic Peptide 12 0-100 pg/mL Total Protein 6.7 6.0-8.3 g/dL Albumin 2.9 L 3.5-5.0 g/dL Procalcitonin < 0.05 L 0.05-0.5 ng/mL Influenza Type A Antigen Negative For Type A NEGATIVE Influenza Type B Antigen Negative For Type B NEGATIVE SARS-CoV-2 Antigen (Rapid) PRESUMPTIVE NEGATIVE NEGATIVE Urine Color COLORLESS YELLOW Urine Appearance CLEAR CLEAR Urine pH 6.0 5.0-8.0 Urine Specific Branch 1.006 1.001-1.031 Urine Protein NEGATIVE NEGATIVE mg/dL Urine Glucose (UA) NEGATIVE NEGATIVE mg/dL Urine Ketones 5 H NEGATIVE mg/dL Urine Occult Blood NEGATIVE NEGATIVE Urine Nitrate NEGATIVE NEGATIVE Urine Bilirubin NEGATIVE NEGATIVE mg/dL Urine Urobilinogen 0.2 0.2-1.0 mg/dL Urine Leukocyte Esterase NEGATIVE NEGATIVE Sadaf/uL Urine Opiates Screen NEGATIVE NEGATIVE Urine Barbiturates Screen NEGATIVE NEGATIVE Urine Phencyclidine Screen NEGATIVE NEGATIVE Urine Amphetamines Screen NEGATIVE NEGATIVE Urine Benzodiazepines Screen NEGATIVE NEGATIVE Urine Cocaine Screen POSITIVE H NEGATIVE Urine Marijuana (THC) Screen NEGATIVE NEGATIVE Test 03/28/24 14:13 03/28/24 13:46 03/28/24 12:34 03/28/24 11:50 Range/Units Troponin I High Sensitivity 6 4-75 ng/L D-Dimer Quantitative (PE/DVT) 441 0-500 ng/mL Troponin I < 0.05 0.00-0.05 ng/mL Serum Alcohol 5 0-10 mg/dL Current Medications Medications (Trade) Dose Ordered Sig/Jyoti Route PRN Reason Start Time Stop Time Status Last Admin Dose Admin Acetaminophen (TYLenol 325MG TAB) 650 mg Q4H PRN PO MILD PAIN (1-3) 03/28/24 15:30 04/27/24 15:29 Acetaminophen (TYLenol 325MG TAB) 650 mg Q6H PRN PO MILD PAIN (1-3) 03/28/24 15:30 03/28/24 15:55 DC Acetaminophen (TYLenol 325MG TAB) 650 mg Q6H PRN PO TEMPERATURE GREATER THAN 101.5 03/28/24 15:30 04/27/24 15:29 Acetaminophen (TYLenol 500MG TAB) 500 mg Q6H PRN PO TEMP < 101.1 AND/OR HEADACHE 03/28/24 15:30 03/28/24 15:55 DC Al Hydroxide/Mg Hydroxide (MAALox PLUS 30ML) 30 ml Q6H PRN PO INDIGESTION 03/28/24 15:30 04/27/24 15:29 Albuterol Sulfate (Proventil 0.083% 2.5mg/3ml) 2.5 mg Y3HOROU PRN IH RESPIRATORY SYMPTOMS 03/28/24 15:30 04/27/24 15:29 Chlordiazepoxide HCl (LIBrium 25 MG CAP) 25 mg Q2H PRN PO ALCOHOL WITHDRAWAL PROTOCOL 03/28/24 15:30 04/04/24 15:29 03/29/24 05:10 25 MG Chlordiazepoxide HCl (LIBrium 25 MG CAP) 50 mg Q1H PRN PO ALCOHOL WITHDRAWAL PROTOCOL 03/28/24 15:30 04/04/24 15:29 03/28/24 20:27 50 MG Dextrose (D50w) 50 ml AD PRN IV HYPOGLYCEMIA PROTOCOL 03/28/24 15:30 04/27/24 15:29 Diphenhydramine HCl (BENAdryl INJ) 25 mg Q6H PRN IV SEVERE ITCHING/RASH 03/28/24 15:30 04/27/24 15:29 Famotidine (Pepcid 20mg Vial) 20 mg BID PRN IV NAUSEA/VOMITING 03/28/24 15:30 03/28/24 15:55 DC Famotidine (Pepcid 20mg Tab) 20 mg BID PO 03/28/24 21:00 04/27/24 20:59 03/29/24 08:28 20 MG Glucagon (Glucagon 1mg Kit) 1 mg AD PRN IM HYPOGLYCEMIA PROTOCOL 03/28/24 15:30 04/27/24 15:29 Guaifenesin/ Dextromethorphan (RobiTUSSin DM 200/20MG 10ML) 10 ml Q4H PRN PO COUGH 03/28/24 15:30 04/27/24 15:29 Heparin Sodium (Porcine) (HEParin 5,000 UNIT VIAL) 5,000 unit BID SQ 03/28/24 21:00 04/27/24 20:59 03/29/24 08:32 5,000 UNIT Hydralazine HCl (APRESOLine 20MG INJ) 10 mg Q6H PRN IV For:SBP above 160;DBP above 90 03/28/24 15:30 04/27/24 15:29 Insulin Human Regular (humuLIN R 100 UNIT/ML 3ML) INSULIN SLIDING SCAL... ACHS SQ 03/28/24 16:30 04/27/24 16:29 Ipratropium [place] (AtrovENT UD) 0.5 mg [id number] IH 03/28/24 18:00 04/27/24 17:59 03/29/24 11:33 0.5 MG Ketorolac Tromethamine (toRADol) 15 mg Q8H PRN IV MODERATE PAIN (4-6) 03/28/24 15:30 04/02/24 15:29 Lactulose (Constulose 20gm/ 30ml Udcup) 20 gm BID PRN PO CONSTIPATION 03/28/24 15:30 04/27/24 15:29 Magnesium Sulfate 50 ml @ 0 mls/hr PROTOCOL PRN IV other 03/28/24 15:30 04/27/24 15:29 Morphine Sulfate (morPHINE 2MG SYG) 1 mg Q4H PRN IVP SEVERE PAIN (7-10) 03/28/24 15:30 04/04/24 15:29 Nitroglycerin (Nitrostat) 0.4 mg PROTOCOL PRN SL CHEST PAIN 03/28/24 15:30 04/27/24 15:29 Ondansetron HCl (zoFRAN 4MG INJ) 4 mg Q4H PRN IV NAUSEA 03/28/24 15:30 04/27/24 15:29 Pharmacy Profile Note (Pharmacy Communication) 1 each PROTOCOL PRN MISC ETOH Withdrawal Score changes 03/28/24 15:30 04/04/24 15:29 Potassium Chloride 100 ml @ 100 mls/hr AD PRN IV POTASSIUM PROTOCOL 03/28/24 15:30 04/27/24 15:29 Potassium Chloride (K-Dur 10meq Sr Tab) 10 meq AD PRN PO POTASSIUM PROTOCOL 03/28/24 15:30 04/27/24 15:29 Potassium Chloride (KCl 10% Elixir 20meq/15ml) 10 meq AD PRN PO POTASSIUM PROTOCOL 03/28/24 15:30 04/27/24 15:29 Promethazine HCl (Phenergan) 25 mg Q6H PRN PO NAUSEA 03/28/24 15:30 04/27/24 15:29 Sodium Chloride 1,000 ml @ 100 mls/hr Q10H IV 03/28/24 15:30 04/27/24 15:29 03/28/24 16:26 100 MLS/HR Thiamine HCl 100 mg/Folic Acid 1 mg/Multivitamins/ Minerals 10 ml/ Sodium Chloride 1,011.2 ml @ 100 mls/ hr Q24H IV 03/28/24 15:30 03/31/24 01:37 03/28/24 16:29 100 MLS/HR Zolpidem Tartrate (AmbIEN) 5 mg HS PRN PO INSOMNIA 03/28/24 15:30 04/27/24 15:29 DIAGNOSTICS / RADIOLOGY: [ ] ASSESSMENT: [ Acute hypoxic respiratory failure POA Metabolic encephalopathy POA chest pain of unknown origin POA acute alcohol withdrawal POA acute cocaine drug withdrawal POA rhabdomylosis POA Akute dehydration POA pulmonary vasc congestion per chest xray POA uncontrolled hypertension POA tachycardia POA uncontrolled dm 2 with hyperglycemia POA hx r arm sx ] PLAN: Admit: Medical-surgical condition: Guarded Status: Full code IVF: Banana bag75 mL/hour ( MVI, Folic acid and thiamine) [facility] Consultants personnel scheduler's ruled out ACS. Test: Echo pending Counseling provided community resources provided. Fall precautions aspiration precautions Labs cbc, cmp, mag+ in am Replace electrolytes as needed as per protocol to keep potassium above 4.0 magnesium 2.0. Home medications pending to be reviewed by RN nurse. PRN: MEDICATIONS Tylenol 650 mg po every 4 hrs for fever zofran 4 mg IV every 6 hrs for n/v Hydralazine 5 mg IV every 4 hrs systolic pressure > 160 bowel regiment: lactulose 20 gm PO BID PRN constipation Pain management: Supportive measures: DVT ppx, GI ppx all questions answered Supervising MD: Dr. johnson/giovanni This document was generated in part using voice recognition software, occasional wrong word or sound alike substitutions may have occurred due to the inherent limitations of voice recognition software. Read the chart carefully and recognize using context, where the substitutions have occurred. Although every effort was made to edit the content, egg sorter and typing errors may occur ATTESTATION BY PHYSICIAN I have seen and examined the patient. I reviewed the documentation, medical decision making, and treatment plan as noted by the mid-level provider above. I agree with the findings and plan of care. Jacque Solomon MD, ELIZABETH NP Mar 29, 2024 13:45
[2024-03-29] MEDS ORDERED: MAGNESIUM 2GM PREMIX 50ML 50 ML IV SCH (14:00)
--- NOTE | 2024-03-29 14:04 | NUR ---
[facility]/INITIAL ASSESSMENT SW met with patient. He states he lives with his aunt Patricia Valentine. He has no home services or DME. Patient is able to complete ADLs independently and drives. Patient voiced no concerns regarding housing or not having enough food at home. IAP is home. Patient has no insurance or benefits. He was provided with community resources for post hospitalization follow up. Patient was also provided with Good RX card for prescriptions and educated on [facility]zer $4 medication program and [facility] $5 medication program. Patient is being assisted by [employer]fon for financial matters. Addendum: 03/29/24 at 1406 by RAJAT QUILES Amended: Links added.
[2024-03-29] MEDS: MAGNESIUM 2GM PREMIX 50ML 50 ML IV PRN (15:03)
--- NOTE | 2024-03-29 16:33 | HMCSR ---
APPROVED REPORT EXAM: Two-dimensional and M-mode echocardiogram with Doppler and color Doppler. INDICATION ICD: Heart Failure 2D Dimensions RVDd4.8 cmLVEF(%)59.8 (>50%)LVED Vol(simp.)111.0 mL IVSd0.8 (0.7-1.1cm)FS(%)32 %LVES Vol(simp.)63.5 mL LVDd5.0 (3.8-5.6cm)LA (2D)2.9 (1.6-4.0cm)LVEF(%, simp.)43 % PWd1.0 (0.7-1.1cm)Ao Root(2D)3.0 (2.0-3.7cm)LA ESV INDEX (4CH)16.70 mL/m2 IVSs1.3 cmLVOT diam2.4 (1.8-2.4cm)LA ESV INDEX (2CH)22.10 mL/m2 LVDs3.4 (2.5-4.0cm)LA ESV INDEX (BP)21.40 mL/m2 PWs1.5 cm M-Mode Dimensions EPSS1.0 cm LA (MM)2.6 (1.6-4.0cm) Ao Root(MM)3.7 (2.0-3.7cm) Aortic Valve AoV VTI0.3 mAo Mean GR4.0 mmHgLVOT VTI0.17 m PRANAV (VMAX)3.1 cm2AVA (VTI) 3.1 cm2 Mitral Valve MV E Vmax79.5 cm/sDECEL Hkkt056 ms MV A Vmax82.9 cm/sP 1/2 T70 ms E/A ratio1.0MVA (PHT)3.1 cm2 TDI E/E' Tgmuez13.4E/E' Lateral7.1 Medial E' Peak V6.40 cm/sLateral E' Peak V11.20 cm/s Left Ventricle Left ventricular cavity size is normal. No regional wall motion abnormalities noted. There is normal left ventricular wall thickness. LVEF is 50-55%. The left ventricular diastolic function is normal. Right Ventricle The right ventricle is mildly dilated. The right ventricular systolic function is normal. Atria The left atrium size is normal. The right atrium is moderately dilated. Aortic Valve The aortic valve is normal in structure and function. No aortic regurgitation is present. There is no aortic valvular stenosis. Mitral Valve The mitral valve is normal in structure and function. There is no mitral valve regurgitation noted. T here is no mitral valve stenosis. Tricuspid Valve The tricuspid valve is normal in structure and function. There is no tricuspid valve regurgitation no lora. Pulmonic Valve The pulmonary valve is normal in structure and function. There is no pulmonic valvular regurgitation. Great Vessels The aortic root is normal in size. The IVC is normal in size and collapses >50% with inspiration. Pericardium No pericardial effusion. Conclusion LVEF is 50-55%. The right ventricle is mildly dilated. The aortic root is normal in size. No pericardial effusion.
[2024-03-29] MEDS: acetaMINOPHEN 325 MG TAB PO PRN (20:15)
[2024-03-30 03:52] VITALS: BP 130/93; PULSE 66; RESP 16; TEMP 98
[2024-03-30 05:25] LABS: BASOPHILS # (AUTO) 0.01 K/uL (0.00-0.20); BASOPHILS % (AUTO) 0.2 % (0.0-5.0); EOSINOPHILS # (AUTO) 0.28 K/uL (0.00-0.70); EOSINOPHILS % (AUTO) 6.4 % (0.0-8.0); HEMATOCRIT 42.3 % (42-54); IMMATURE GRANULOCYTE ABSOLUTE 0.01 K/uL (0-1); LYMPHOCYTES # (AUTO) 1.4 K/uL (1.0-4.8); LYMPHOCYTES % (AUTO) 31.3 % (21.0-51.0); MEAN CORPUSCULAR HEMOGLOBIN 31.8 pg (27.0-33.0); MEAN CORPUSCULAR HGB CONC 33.3 g/dL (32.0-36.0); MEAN CORPUSCULAR VOLUME 95.3 fL (79-99); MONOCYTES # (AUTO) 0.3 K/uL (0.1-1.0); MONOCYTES % (AUTO) 7.8 % (3.0-13.0); NEUTROPHILS # (AUTO) 2.4 K/uL (1.8-7.7); NEUTROPHILS % (AUTO) 54.1 % (40.0-77.0); PLATELET COUNT (AUTO) 179 K/uL (130-400); RED BLOOD CELL COUNT(AUTO) 4.44 MIL/uL (4.50-6.20); RED CELL DISTRIBUTION WIDTH 13.5 % (11.0-15.5); WHITE BLOOD COUNT (AUTO) 4.4 K/uL (4.8-10.8)
[2024-03-30 05:47] LABS: ALBUMIN 2.8 g/dL (3.5-5.0); BILIRUBIN,TOTAL 0.5 mg/dL (0.2-1.0); CREATININE 1.1 mg/dL (0.5-1.3); MAGNESIUM 1.9 mg/dL (1.80-2.40); POTASSIUM 4.1 mmol/L (3.5-5.1); TOTAL PROTEIN, SERUM 6.6 g/dL (6.0-8.3)
[2024-03-30 07:08] VITALS: PULSE 74; RESP 18; O2SAT 98
[2024-03-30 08:00] VITALS: BP 144/97; PULSE 72; RESP 18; TEMP 97.6; O2SAT 98
[2024-03-30] MEDS: ketOROlac 15MG/ML VIAL (15MG/ML) IV PRN (09:14)
[2024-03-30] MEDS ORDERED: THIA100T91 PO (09:25)
--- NOTE | 2024-03-30 09:32 | DS ---
Discharge Summary Hospital Course Summary: Pt is 43-year-old male with medical hx of DM, htn, alcohol and drug abuse who presents to the ED via EMS for evaluation chest pain. Patient reports he has been doing cocaine and drinking since last night and has had chest pain. EMS reports gave nitro and 325 aspirin with improvement in symptoms.Patient no longer having pain at this time. 03/29/2024 no episodes of shortness a breath or chest pain. Nurse reports patient having DTs overnight Librium was given. We will continue with CIWA protocol. 03/30/2024 patient is clinically stable for discharge. Patient is fully awake alert oriented x3. patient received counseling on cocaine use and alcohol abuse community resources were provided. Patient denied chest pain. Or shortness for breath currently on room air. All questions addressed PHYSICAL EXAM GENERAL APPEARANCE: The patient is awake, alert, and oriented, in no acute cardiopulmonary distress. NEUROLOGICAL: Cranial nerves II-XII grossly intact. Motor is 5/5 in bilateral upper and lower extremities proximal to distal. No sensory deficits. HEENT: Face is symmetric. Pupils are equal and reactive. Extraocular movements are intact. NECK: Supple. No JVD. No thyromegaly. No submental, submandibular, pre- /postauricular, occipital or supraclavicular lymphadenopathy. CHEST: Normal chest expansion. No Telemetry. LUNGS: Absence of any rales, rhonchi or any wheezing. CARDIOVASCULAR: Regular. S1 and S2 normal. No appreciable rubs, murmurs or gallops. ABDOMEN: Soft, nontender, and nondistended. There is no rebound, voluntary guarding, or rigidity. : Deferred. No Ron. EXTREMITIES: Non-edematous and not cyanotic. No clubbing. Good capillary refill. SKIN: No skin breakdown. Procedure(s): REASON: chf ORDERING PHYSICIAN: KLEVER MARTINES APRN PROCEDURE: ECHO CMP - ECHO 2-D COMPLETE APPROVED REPORT EXAM: Two-dimensional and M-mode echocardiogram with Doppler and color Doppler. INDICATION ICD: Heart Failure 2D Dimensions RVDd 4.8 cm LVEF(%) 59.8 (>50%) LVED Vol(simp.) 111.0 mL IVSd 0.8 (0.7-1.1cm) FS(%) 32 % LVES Vol(simp.) 63.5 mL LVDd 5.0 (3.8-5.6cm) LA (2D) 2.9 (1.6-4.0cm) LVEF(%, simp.) 43 % PWd 1.0 (0.7-1.1cm) Ao Root(2D) 3.0 (2.0-3.7cm) LA ESV INDEX (4CH) 16.70 mL/m2 IVSs 1.3 cm LVOT diam 2.4 (1.8-2.4cm) LA ESV INDEX (2CH) 22.10 mL/m2 LVDs 3.4 (2.5-4.0cm) LA ESV INDEX (BP) 21.40 mL/m2 PWs 1.5 cm M-Mode Dimensions EPSS 1.0 cm LA (MM) 2.6 (1.6-4.0cm) Ao Root(MM) 3.7 (2.0-3.7cm) Aortic Valve AoV VTI 0.3 m Ao Mean GR 4.0 mmHg LVOT VTI 0.17 m PRANAV (VMAX) 3.1 cm2 PRANAV (VTI) 3.1 cm2 Mitral Valve MV E Vmax 79.5 cm/s DECEL Time 222 ms MV A Vmax 82.9 cm/s P 1/2 T 70 ms E/A ratio 1.0 MVA (PHT) 3.1 cm2 TDI E/E' Medial 12.4 E/E' Lateral 7.1 Medial E' Peak V 6.40 cm/s Lateral E' Peak V 11.20 cm/s Left Ventricle Left ventricular cavity size is normal. No regional wall motion abnormalities noted. There is normal left ventricular wall thickness. LVEF is 50-55%. The left ventricular diastolic function is normal. Right Ventricle The right ventricle is mildly dilated. The right ventricular systolic function is normal. Atria The left atrium size is normal. The right atrium is moderately dilated. Aortic Valve The aortic valve is normal in structure and function. No aortic regurgitation is present. There is no aortic valvular stenosis. Mitral Valve The mitral valve is normal in structure and function. There is no mitral valve regurgitation noted. There is no mitral valve stenosis. Tricuspid Valve The tricuspid valve is normal in structure and function. There is no tricuspid valve regurgitation noted. Pulmonic Valve The pulmonary valve is normal in structure and function. There is no pulmonic valvular regurgitation. Great Vessels The aortic root is normal in size. The IVC is normal in size and collapses >50% with inspiration. Pericardium No pericardial effusion. Conclusion LVEF is 50-55%. The right ventricle is mildly dilated. The aortic root is normal in size. No pericardial effusion. REASON: pna congestion sob ORDERING PHYSICIAN: KLEVER MARTINES APRN PROCEDURE: CHEST WO - CT CHEST W/O CONTRAST CT CHEST W/O CONTRAST CLINICAL HISTORY: pna congestion sob COMPARISON: None TECHNIQUE: Multiple sequential axial images of the chest were obtained from the thoracic inlet through upper abdomen. CT was performed with one or more of the following dose reduction techniques: automated exposure control, adjustment of the mA and/or kV according to patient size, or use of iterative reconstruction technique FINDINGS: There is mild bibasilar atelectasis. The mediastinum is free of pathologic sized lymph nodes. There is no calcified coronary artery disease. Note is made of a large fatty liver. The bony structures are within normal limits. IMPRESSION: There are no identified infiltrates or acute findings. Fatty liver REASON: syncopy ORDERING PHYSICIAN: KLEVER MARTINES APRN PROCEDURE: CAROTID - US CAROTID DUPLEX Carotid Duplex and color-flow Doppler bilateral Clinical Information: syncopy Comparison: None Findings: Mild left bifurcation plaque is seen. No hemodynamically significant stenosis noted. Left Internal Carotid Artery Peak Systolic Velocity (PSV), Left Internal Carotid to Common Carotid Artery peak systolic velocity ratio, Right Internal Carotid Artery Peak Systolic Velocity (PSV) and Right Internal Carotid to Common Carotid Artery peak systolic velocity ratio, are all within normal limits. External carotid artery velocities normal bilaterally. Bilateral vertebral arteries show normal velocities and waveforms with antegrade flow. Impression: No hemodynamically significant stenosis noted. NASCET CRITERIA. The degree of internal carotid artery stenosis is based on NASCET criteria. Normal is no stenosis. Mild is less than 50% stenosis. Moderate is 50-69% stenosis. Severe is 70% to 99% stenosis. Total occlusion is no detectable Assessment/Plan: Discharged dx's; [ Acute hypoxic respiratory failure POA resolved Metabolic encephalopathy POA resolved chest pain of unknown origin POA ruled out ACS atypical chest pain triggered by cocaine use acute alcohol withdrawal POA Counseling provided community resources acute cocaine drug withdrawal POA Counseling provided community resources rhabdomylosis POA resolved Akute dehydration POA resolve pulmonary vasc congestion per chest xray POA uncontrolled hypertension POA tachycardia POA uncontrolled dm 2 with hyperglycemia POA A1c 6.3 hx r arm sx ] PLAN: ADMISSION DATE: 03/28/2024 DISCHARGE DATE: 03/30/2024 DISPOSITION: Home CONDITION: Stable ENROLLMENT CONSULTANT(S): None FOLLOW UP APPOINTMENT(S): Community resources provided PROCEDURES: None IMAGING (S) report attached to summary : Echo, CT chest, carotid Doppler MICROBIOLOGY: report attached to summary; none ACTIVITY: Ad leticia HOME MEDICATIONS thiamine 100 mg p.o. for seven days. Not a for GDMT candidate for beta dex, antiplatelet agents or statins.per cardiololgist TEACHING: Illicit Emergency instructions: The patient was instructed to present to the nearest Emergency Department or call 911 should their symptoms return or worsen. New Medications: Thiamine HCl (Vitamin B-1) 100 Mg Tablet 1 TAB PO DAILY for 7 Days, #7 TAB 0 Refills Time spent arranging discharge: 31-60 minutes ATTESTATION BY PHYSICIAN I have seen and examined the patient. I reviewed the documentation, medical decision making, and treatment plan as noted by the mid-level provider above. I agree with the findings and plan of care. Jacque Solomon MD, ELIZABETH NP Mar 30, 2024 09:32
--- NOTE | 2024-03-30 10:00 | NUR ---
PATIENT READY FOR DISCHARGE. DISCUSSED PLAN OD CARE, HOME MEDICATIONS AND THE IMPORTANCE OF MONITORING ALCOHOL INTAKE. PATIENT VERBALIZED UNDERSTANDING. DISCONTINUED TELEMETRY AND IV ACCESS. ESCORTED PATIENT TO [facility] AT 1115. HE LEFT IN PRIVATE CARE WITH FAMILY MEMBERS.
== END 2024-03-30 11:15 | disposition home or self-care (01) | DRG 189 ==
LOC: EDH 11:42 → EDHIP 11:43 → UNDOADMIN 15:23 → EDHIP 15:23 → 3BH 21:20
PROVIDERS: ADMIT Internal Medicine Sleep Medicine; ATTEND Internal Medicine Sleep Medicine
DX: J96.01 Acute respiratory failure with hypoxia (principal); G93.41 Metabolic encephalopathy; F10.239 Alcohol dependence with withdrawal, unspecified; F19.239 Other psychoactive substance dependence with withdrawal, unspecified; M62.82 Rhabdomyolysis; R00.0 Tachycardia, unspecified; E11.65 Type 2 diabetes mellitus with hyperglycemia; Z20.822 Contact with and (suspected) exposure to COVID-19; E86.0 Dehydration; F10.229 Alcohol dependence with intoxication, unspecified; F14.129 Cocaine abuse with intoxication, unspecified; Z86.74 Personal history of sudden cardiac arrest; Z79.899 Other long term (current) drug therapy
CPT/HCPCS: 36415; 71045; 71250; 80048; 80053; 80076; 80305; 81003; 82140; 82550; 82948; 83036; 83605; 83735; 83880; 84145; 84484; 85025; 85378; 87426; 87804; 93005; 93306; 93880; 94640; 94664; G0378; J1644; J1885; J3411; J3475; J3490; J7030

== ENCOUNTER 2024-05-25 12:57 | Emergency (ER) | payer SELFPAY ==
[~2024-05-25] VITALS: Ht 172.7 cm; Wt 83.9 kg
[~2024-05-25 12:57] MED LIST: THIA100T91 PO
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
[2024-05-25 13:56] LABS: BASOPHILS # (AUTO) 0.05 K/uL (0.00-0.20); BASOPHILS % (AUTO) 0.8 % (0.0-5.0); EOSINOPHILS # (AUTO) 0.13 K/uL (0.00-0.70); HEMATOCRIT 46.6 % (42-54); IMMATURE GRANULOCYTE ABSOLUTE 0.01 K/uL (0-1); LYMPHOCYTES # (AUTO) 1.3 K/uL (1.0-4.8); LYMPHOCYTES % (AUTO) 19.7 % (21.0-51.0); MEAN CORPUSCULAR HEMOGLOBIN 32.1 pg (27.0-33.0); MEAN CORPUSCULAR VOLUME 91.7 fL (79-99); MONOCYTES # (AUTO) 0.5 K/uL (0.1-1.0); MONOCYTES % (AUTO) 7.5 % (3.0-13.0); NEUTROPHILS # (AUTO) 4.5 K/uL (1.8-7.7); NEUTROPHILS % (AUTO) 69.8 % (40.0-77.0); PLATELET COUNT (AUTO) 251 K/uL (130-400); RED BLOOD CELL COUNT(AUTO) 5.08 MIL/uL (4.50-6.20); RED CELL DISTRIBUTION WIDTH 12.8 % (11.0-15.5); WHITE BLOOD COUNT (AUTO) 6.4 K/uL (4.8-10.8)
[2024-05-25] MEDS: diazePAM 5 MG/ML 2 ML SYG IVP ONE (14:02)
[2024-05-25] MEDS: ZIPRASIDONE MESYLATE 20 MG/VIAL IM ONE (14:04)
[2024-05-25 14:05] LABS: CARBON DIOXIDE 26 mmol/L (21-32); CHLORIDE 95 mmol/L (101-111); GLOMERULAR FILTR. RATE CALC 96 mL/min (>90); GLUCOSE,RANDOM 110 mg/dL (70-105); POTASSIUM 3.5 mmol/L (3.5-5.1); SODIUM SERUM 135 mmol/L (136-145); UREA NITROGEN, BLOOD 4 mg/dL (7-18)
[2024-05-25 14:09] LABS: ALCOHOL, BLOOD 141 mg/dL (0-10)
[2024-05-25 14:19] LABS: ACETAMINOPHEN < 10 mcg/mL (10-29); SALICYLATE < 2.8 mg/dL (2.8-20.0)
--- NOTE | 2024-05-25 14:22 | NUR ---
[facility] PHONE [phone] [facility] PHONE [phone]
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
--- NOTE | 2024-05-25 14:35 | HMCIMG ---
Exam Type: CHEST 1VW Clinical Information: PAIN Comparison: None Findings: The lungs are clear of infiltrates. The heart is normal in size. The bony and soft tissue structures of the chest are unremarkable. Impression: Clear lungs.
--- NOTE | 2024-05-25 16:03 | EKG ---
[facility] Test Date: 2024-05-25 Test Time: 13:31:13 Pat Name: JULIO ROMERO Department: [facility] Room: Gender: M Rubble Placer: 07 : 1980 Requested By: KORIN BASILIO Order Number: [id number] Reading MD: Shyann Cardoso Measurements Intervals [place] Rate: 119 P: 55 AK: 136 QRS: -25 QRSD: 94 T: 68 QT: 324 QTc: 455 Interpretive Statements Sinus tachycardia Compared to ECG 03/28/2024 11:48:36 Sinus rhythm no longer present Electronically Signed On 05-26-2024 12:27:49 CDT by Shyann Cardoso Please click the below link to view image of tracing.
[2024-05-25 16:25] LABS: APPEARANCE,URINE CLEAR (CLEAR); BILIRUBIN,URINE NEGATIVE (NEGATIVE); COLOR,URINE COLORLESS (YELLOW); GLUCOSE, URINE (UA) NEGATIVE (NEGATIVE); KETONES,URINE NEGATIVE (NEGATIVE); LEUKOCYTE ESTERASE ,URINE NEGATIVE Leu/uL (NEGATIVE); NITRATE,URINE NEGATIVE (NEGATIVE); OCCULT BLOOD,URINE NEGATIVE (NEGATIVE); PH,URINE 6.5 (5.0-8.0); PROTEIN,URINE NEGATIVE (NEGATIVE); UROBILINOGEN,URINE 0.2 mg/dL (0.2-1.0)
[2024-05-25 16:31] LABS: ADD UA MICROSCOPIC NO; AMPHET/METH SCREEN,URINE NEGATIVE (NEGATIVE); BARBITURATE SCREEN, URINE NEGATIVE (NEGATIVE); BENZODIAZEPINES SCREEN,URINE NEGATIVE (NEGATIVE); CANNABINOID SCREEN,URINE NEGATIVE (NEGATIVE); COCAINE SCREEN,URINE POSITIVE (NEGATIVE); OPIATE SCREEN,URINE NEGATIVE (NEGATIVE); PHENCYCLIDINE SCREEN,URINE NEGATIVE (NEGATIVE)
--- NOTE | 2024-05-25 18:02 | NUR ---
PATIENT CALM AND COOPERATIVE ALERT AND ORIENTEDX4
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
--- NOTE | 2024-05-25 19:27 | NUR ---
CONTACTED AUNT AND INFORMED HER PT READY TO BE DISCHARGED SHE ADVISED WILL BE HERE IN ABOUT 15 MIN
[2024-05-25 19:30] VITALS: BP 128/81; PULSE 79; RESP 14; TEMP 98.3; O2SAT 79
--- NOTE | 2024-05-25 20:05 | NUR ---
PENDING AUNTS ARRIVAL FOR DISCHARGE
--- NOTE | 2024-05-25 20:21 | NUR ---
CALLED AUNT AND COUSIN TO CHECK ON ETA NO ANSWER AT THAT TIME
[2024-05-25] MEDS: DiphenhydrAMINE HCL 50 MG/ML VIAL IV ONE (20:37)
== END 2024-05-25 20:42 | disposition home or self-care (01) ==
LOC: EDH 12:57
DX: F14.10 Cocaine abuse, uncomplicated (principal); F10.129 Alcohol abuse with intoxication, unspecified; E87.1 Hypo-osmolality and hyponatremia; F22 Delusional disorders; E11.9 Type 2 diabetes mellitus without complications; I10 Essential (primary) hypertension; F31.9 Bipolar disorder, unspecified; F41.9 Anxiety disorder, unspecified
CPT/HCPCS: 99285; 96374; 71045; 96375; 84484; 80048; 80305; 85025; 81003; 36415; 96372; 93005; G0481; J1200; J3360; J3486